=== PATIENT | male | born 1960 | race African-American/Black ===

== ENCOUNTER 2019-03-02 16:51 | Inpatient (IN) ==
[2019-03-02] MEDS ORDERED: THIAMINE INJ 100 MG, FOLIC ACID INJ 1 MG, MULTIVITAMIN INJ 10 ML in SODIUM CHLORIDE 0.9... IV ONE (17:01)
[2019-03-02] MEDS ORDERED: LORazepam 2 MG/1 ML VIAL IV PRN (17:01)
[2019-03-02] MEDS ORDERED: METHOCARBAMOL 750 MG TABLET PO PRN (17:01)
[2019-03-02] MEDS ORDERED: DICYCLOMINE 10 MG CAPSULE PO PRN (17:01)
[2019-03-02] MEDS ORDERED: PNEUMOCOCCAL VACCINE (13 VALENT) 0.5 ML SYRINGE IM ONE (17:48)
[2019-03-02] MEDS ORDERED: INFLUENZA VIRUS VACCINE 0.5 ML SYRINGE IM ONE (17:48)
[2019-03-02 19:08] LABS: Albumin 4.3 G/DL (3.4-5.0); Bilirubin,Direct 0.17 MG/DL (0.0-0.20); Bilirubin,Indirect 0.2 MG/DL (0.0-1.0); Bilirubin,Total 0.4 MG/DL (0.2-1.0)
[2019-03-02 19:13] LABS: Albumin 4.3 G/DL (3.4-5.0); Bilirubin,Total 0.4 MG/DL (0.2-1.0); Calcium 9.2 MG/DL (8.5-10.1); Osmolality,Calculated 273.7 MOS/KG (273-304); Total Protein 8.1 G/DL (6.4-8.3)
[2019-03-02] MEDS: chlordiazePOXIDE 25 MG CAPSULE PO SCH (19:27)
[2019-03-02] MEDS: HydrOXYzine PAMOATE 25 MG CAPSULE PO PRN (19:27)
[2019-03-02] MEDS: NICOTINE 21 MG/24 HR PATCH TRANSDERM SCH (19:28)
[2019-03-02 19:54] LABS: Hepatitis B Core IgM Quant 0.08 Index; Hepatitis B Surface Ag Quant 0.37 Index; Hepatitis B Surface Ag Result Negative (Negative); Hepatitis C Virus Ab Quant < 0.02 Index; Hepatitis C Virus Ab Result Negative (Negative)
[2019-03-02] MEDS ORDERED: THIAMINE INJ 100 MG, FOLIC ACID INJ 1 MG, MULTIVITAMIN INJ 10 ML in SODIUM CHLORIDE 0.4... IV ONE (20:00)
[2019-03-02] MEDS: buPROPion 100 MG TABLET PO SCH (20:45)
[2019-03-03 01:29] LABS: Barbiturates Screen,Urine Negative (Negative); Benzodiazepines Screen,Urine Negative (Negative); Cannabinoid Screen,Urine Negative (Negative); Opiate Screen,Urine Negative (Negative); Phencyclidine Screen,Urine Negative (Negative)
[2019-03-03] MEDS: chlordiazePOXIDE 25 MG CAPSULE PO SCH ×4 (01:49→17:12)
[2019-03-03 05:24] LABS: Albumin 3.4 G/DL (3.4-5.0); Bilirubin,Total 1.1 MG/DL (0.2-1.0); Calcium 8.6 MG/DL (8.5-10.1); Total Protein 6.5 G/DL (6.4-8.3)
[2019-03-03 05:25] LABS: Osmolality,Calculated 275.4 MOS/KG (273-304)
[2019-03-03] MEDS: SODIUM CHLORIDE 0.9% 1,000 ML IV SCH ×2 (05:25→07:44)
[2019-03-03] MEDS: buPROPion 100 MG TABLET PO SCH ×2 (09:37→20:56)
[2019-03-03] MEDS: POTASSIUM CHLORIDE 20 MEQ TABLET PO PRN ×4 (09:37→20:56)
[2019-03-03] MEDS: NICOTINE 21 MG/24 HR PATCH TRANSDERM SCH (09:38)
[2019-03-03] MEDS: CETIRIZINE 10 MG TABLET PO SCH (17:13)
[2019-03-03] MEDS: HydrOXYzine PAMOATE 25 MG CAPSULE PO PRN (20:55)
[2019-03-03] MEDS: MONTELUKAST 10 MG TABLET PO SCH (20:56)
[2019-03-04] MEDS: SODIUM CHLORIDE 0.9% 1,000 ML IV SCH ×3 (03:00→10:09)
[2019-03-04] MEDS: chlordiazePOXIDE 25 MG CAPSULE PO SCH ×3 (03:14→17:14)
[2019-03-04 06:25] LABS: Albumin 3.3 G/DL (3.4-5.0); Bilirubin,Total 0.9 MG/DL (0.2-1.0); Calcium 8.6 MG/DL (8.5-10.1); Osmolality,Calculated 274.5 MOS/KG (273-304); Total Protein 6.3 G/DL (6.4-8.3)
[2019-03-04] MEDS: buPROPion 100 MG TABLET PO SCH (08:39)
[2019-03-04] MEDS: CETIRIZINE 10 MG TABLET PO SCH (08:39)
[2019-03-04] MEDS: NICOTINE 21 MG/24 HR PATCH TRANSDERM SCH (08:39)
[2019-03-05] MEDS: chlordiazePOXIDE 25 MG CAPSULE PO SCH ×2 (02:18→08:48)
[2019-03-05] MEDS: SODIUM CHLORIDE 0.9% 1,000 ML IV SCH (02:19)
[2019-03-05] MEDS: buPROPion 100 MG TABLET PO SCH ×2 (02:19→08:49)
[2019-03-05] MEDS: MONTELUKAST 10 MG TABLET PO SCH (02:19)
[2019-03-05 05:53] LABS: Albumin 3.2 G/DL (3.4-5.0); Bilirubin,Total 0.5 MG/DL (0.2-1.0); Calcium 8.8 MG/DL (8.5-10.1); Osmolality,Calculated 278.3 MOS/KG (273-304); Total Protein 6.4 G/DL (6.4-8.3)
[2019-03-05 05:56] LABS: Albumin 3.1 G/DL (3.4-5.0); Bilirubin,Direct 0.13 MG/DL (0.0-0.20); Bilirubin,Indirect 0.4 MG/DL (0.0-1.0); Bilirubin,Total 0.5 MG/DL (0.2-1.0); Total Protein 6.3 G/DL (6.4-8.3)
[2019-03-05 07:46] VITALS: BP 122/72
[2019-03-05] MEDS: NICOTINE 21 MG/24 HR PATCH TRANSDERM SCH (08:48)
[2019-03-05] MEDS: CETIRIZINE 10 MG TABLET PO SCH (08:48)
== END 2019-03-05 10:29 | disposition home or self-care (01) | DRG 897 ==
LOC: SUATTDRO 17:18 → N.4E 17:18
PROVIDERS: ADMIT Internal Medicine; ATTEND Internal Medicine